=== PATIENT | female | born 1975 | race Caucasian/White ===

== ENCOUNTER → 2021-05-04 | Outpatient (CLI) | payer OTHER ==
[~2021-05-04] MED LIST: IRON 100-VITAM1 EACH PO; LISINOPRIL40 MG PO; OMEPRAZOLE20 MG PO
[2021-05-04 10:47] LABS: HEMOGLOBIN 12.6 gm/dl (12.3-15.3); RED BLOOD COUNT 4.3 M/UL (4.00-5.10); WHITE BLOOD COUNT 9.7 K/UL (4.5-11.0)
[2021-05-04 11:01] LABS: BUN/CREATININE RATIO 24 (0-10)
== END ==
LOC: OPSV2 09:00
PROVIDERS: Anesthesiology; Obstetrics & Gynecology
DX: Z01.818 Encounter for other preprocedural examination (principal); N93.9 Abnormal uterine and vaginal bleeding, unspecified; I10 Essential (primary) hypertension; Z79.899 Other long term (current) drug therapy; R00.1 Bradycardia, unspecified; R94.31 Abnormal electrocardiogram [ECG] [EKG]
CPT/HCPCS: 36415; 80048; 81001; 85025; 93005

== ENCOUNTER → 2021-05-07 | Day surgery (SDC) | payer OTHER | END | disposition home or self-care (01) | LOC: OR 06:34 | DX: N93.9 Abnormal uterine and vaginal bleeding, unspecified (principal); I10 Essential (primary) hypertension; Q21.1 Atrial septal defect; D64.9 Anemia, unspecified; R94.31 Abnormal electrocardiogram [ECG] [EKG]; Z79.899 Other long term (current) drug therapy; Z20.822 Contact with and (suspected) exposure to COVID-19; Z87.891 Personal history of nicotine dependence; Z98.51 Tubal ligation status | CPT/HCPCS: J1100; J1885; J2001; J2250; J2405; J2704; J3010; J7030; J7120 ==